=== PATIENT | female | born 1985 | race Caucasian/White ===

== ENCOUNTER 2017-06-09 22:17 | Emergency (ER) | payer OTHER ==
[2017-06-09 22:36] VITALS: BP 121/80; PULSE 69; RESP 16; TEMP 97.9; O2SAT 96
[2017-06-09] MEDS ORDERED: PROPARACAINE 0.5% 15 ML OPHT DROP RTEYE ONE (22:37)
--- NOTE | 2017-06-09 22:39 | EDPHY ---
H & P Time Seen by Provider: 06/09/17 22:38 HPI/ROS: CHIEF COMPLAINT: Left eye pain HISTORY OF PRESENT ILLNESS: The patient is a 31-year-old female who presents emergency department with left eye pain. Patient states that her baby accidentally stuck her finger in her eye. She developed immediate pain. No eye discharge. Patient feels her vision is slightly blurry. Patient also states that a few days ago she noticed a small red spot on the medial aspect of her eye. This was non pain. No fevers or chills. No previous visual change. REVIEW OF SYSTEMS: My complete review of systems is negative except as mentioned in the HPI. Past Medical/Surgical History: Patient denies medical problems Smoking Status: Never smoked Physical Exam: Vitals noted GENERAL: Well-appearing, in no acute distress, alert. Visual acuity: Noted. Eyelids: Normal inspection, everted for exam. Conjunctiva and sclera: Patient appears to have a pinguecula at the 3:00 position. No foreign material. No subconjunctival hemorrhage. No exudate. Not injected. Corneas: Examined with fluorescein dye: There is a small vertical abrasion. No ulcer]. EOMs: Intact. Pupils: PERRL, normal accommodation. Anterior chambers: Normal inspection. No hyphema. No cells or flare. Posterior segments: Normal funduscopic exam Constitutional: Initial Vital Signs Temperature (C) 36.6 C 06/09/17 22:30 Heart Rate 69 06/09/17 22:30 Respiratory Rate 16 06/09/17 22:30 Blood Pressure 121/80 H 06/09/17 22:30 O2 Sat (%) 96 06/09/17 22:30 O2 Delivery Mode Room Air Allergies/Adverse Reactions: No Known Allergies Allergy (Unverified 06/09/17 22:33) Home Medications: Medication Instructions Recorded Probiotic 06/09/17 Sertraline HCl [Zoloft 50mg (*)] 06/09/17 Medical Decision Making ED Course/Re-evaluation: Patient was given proparacaine for the exam. In the emergency department I discussed possible etiologies with the patient. I answered all her questions. She was given follow-up with Dr. Philip. She was given Ocuflox drops prior to leaving. Patient was given percocet in the ED and a take home pack. Patient had her eye irrigated with normal saline. Prior to leaving she felt as though she had foreign body in her eye. I again examined her eye and flipped her eyelid. I did not visualize any foreign body. Differential Diagnosis: My differential includes but is not limited to corneal abrasion, ulceration, globe disruption, glaucoma, pinguecula - Data Points Medications Given: Discontinued Medications Proparacaine HCl (Alcaine 0.5%) 1 drops RTEYE ONCE ONE Stop: 06/09/17 22:38 Last Admin: 06/09/17 22:40 Dose: 1 drops Departure - Departure Disposition: Home, Routine, Self-Care Clinical Impression: Pinguecula of right eye Corneal abrasion, right Qualifiers: Encounter type: initial encounter Qualified Code(s): S05.01XA - Injury of conjunctiva and corneal abrasion without foreign body, right eye, initial encounter Condition: Good Instructions: Oxycodone/Acetaminophen (By mouth), Ofloxacin (Into the eye), Corneal Abrasion (ED), Pinguecula (ED) Additional Instructions: Use your eye drops every 2 hours while awake for the next 3 days. Referrals: Brittany Philip MD [Non Staff Provider (MD)] - 2-3 days, if not improved
[2017-06-09] MEDS ORDERED: OFLOXACIN 0.3% SOLN PREPACK OPHT.BTL TAKEHOME ONE (22:50)
[2017-06-09] MEDS ORDERED: OXYCODONE/APAP 5/325MG PREPACK#4 BTL TAKEHOME ONE (22:51)
[2017-06-09] MEDS ORDERED: OXYCODONE/APAP 5/325 TAB PO ONE (22:51)
== END 2017-06-09 23:10 | disposition home or self-care (01) ==
LOC: CED 22:17
DX: S05.01XA Injury of conjunctiva and corneal abrasion without foreign body, right eye, initial encounter (principal); H11.151 Pinguecula, right eye; X58.XXXA Exposure to other specified factors, initial encounter

== ENCOUNTER → 2018-12-22 | Outpatient (CLI) | payer OTHER | LOC: EMCIMAGING 14:49 | PROVIDERS: ATTEND Nurse Practitioner Family | DX: S92.001A Unspecified fracture of right calcaneus, initial encounter for closed fracture (principal) | CPT/HCPCS: 73610-PN; 73630-PN ==